=== PATIENT | male | born 1980 | race Caucasian/White ===

== ENCOUNTER 2022-07-10 09:17 | Outpatient (CLI) | payer MEDICAID, SELFPAY | END 2022-07-10 09:18 | disposition home or self-care (01) | LOC: AMB 08-10 14:02 | PROVIDERS: PCP Family Medicine; Visit Provider Family Medicine | DX: R07.89 Other chest pain (principal) | CPT/HCPCS: A0425; A0427 ==

== ENCOUNTER 2022-08-02 14:55 | Outpatient (CLI) | payer MEDICAID, SELFPAY | END 2022-08-02 14:56 | disposition home or self-care (01) | LOC: AMB 09-14 01:34 | PROVIDERS: PCP Family Medicine; Visit Provider Family Medicine | DX: R53.81 Other malaise (principal); R11.0 Nausea; R19.7 Diarrhea, unspecified | CPT/HCPCS: A0425; A0427 ==

== ENCOUNTER 2023-11-22 14:51 | Outpatient (CLI) | payer MEDICAID, SELFPAY | END 2023-11-22 14:52 | disposition home or self-care (01) | LOC: AMB 11-26 13:52 | PROVIDERS: PCP Family Medicine; Visit Provider Emergency Medicine | DX: F10.129 Alcohol abuse with intoxication, unspecified (principal) | CPT/HCPCS: A0425; A0427 ==

== ENCOUNTER 2023-11-25 08:13 | Outpatient (CLI) | payer MEDICAID, SELFPAY | END 2023-11-25 08:14 | disposition home or self-care (01) | LOC: AMB 11-26 18:54 | PROVIDERS: PCP Family Medicine; Visit Provider Family Medicine | DX: F10.129 Alcohol abuse with intoxication, unspecified (principal) | CPT/HCPCS: A0425; A0429 ==